=== PATIENT | female | born 1995 | race Caucasian/White ===

== ENCOUNTER 2019-07-27 16:50 | IRF | payer BC, SELFPAY ==
--- NOTE | ~2019-07-27 | MR_ITS ---
EXAMINATION: MR knee RT wo con DATE: 08/01/2019 16:18 INDICATION: Right knee pain. TECHNIQUE: Magnetic resonance imaging (MRI) of the right knee was performed without intravenous contr ast. Sequences included axial STIR FSE, coronal STIR FSE and PD-weighted FSE, sagittal PD-weighted FS E, and sagittal STIR FSE. COMPARISON: None. FINDINGS: Medial compartment: Medial meniscus is normal. Medial compartment cartilage is normal. Lateral compartment: Lateral meniscus is normal. Lateral compartment cartilage is normal. Patellofemoral compartment: There is deep partial-thickness cartilage loss of inferior patella involving the median ridge and sha llow partial-thickness cartilage loss of the adjacent medial and lateral facets with mild subchondral edema-like marrow signal intensity. Trochlear cartilage is normal. Ligaments and tendons: The anterior and posterior cruciate ligaments are normal. Medial collateral ligament and the lateral collateral ligament complex are normal. Fluid: There is a small knee joint effusion. There is subcutaneous edema about the knee. Osseous/other: There is an intramedullary wade in distal femur with distal interlocking screw. There is a hematoma mcintosh perficial to the head of the screw and deep to vastus lateralis muscle measuring 3.1 x 1.2 x 3.0 cm. IMPRESSION: 1. Focal moderate chondrosis of inferior patella. 2. Small knee joint effusion. 3. Hematoma superficial to the head of the distal femoral screw and deep to vastus lateralis muscle. Reviewed, dictated and finalized at location A. [employer] IMPRESSION: 1. Focal moderate chondrosis of inferior patella. 2. Small knee joint effusion. 3. Hematoma superficial to the head of the distal femoral screw and deep to vas tus lateralis muscle.
[2019-07-27 17:00] VITALS: BP 132/75; PULSE 94; RESP 18; TEMP 37; O2SAT 100; BMI 37.3
--- NOTE | 2019-07-27 17:28 | ADMGEN ---
This patient, Brynn Zhang, was admitted to [facility] Room 224-01. Patient/family oriented to hospital policies and general routines including ID bracelet, bed and alarms, visiting hours, pain management, procedures, bathroom and other care routines, personal items, smoking policy, room service/diet, and visiting hours. Valuables list has been completed. Information on how to activate the Rapid Response Team has been discussed. Patient/Family are encouraged to report perceived risks to care and to ask questions if they do not understand what they are told or what they should do.
[2019-07-27 18:29] VITALS: BMI 38.2
[2019-07-27 22:00] VITALS: BP 132/76; PULSE 96; RESP 18; TEMP 36.7; O2SAT 100
[2019-07-28 04:50] LABS: Basophils Percent Auto 0.3 % (0.2-1.2); Eosinophils Absolute Auto 0.1 K/mm3 (0-0.3); Hematocrit 24.7 % (37.0-47.0); Hemoglobin 7.8 g/dL (12.0-15.0); Immature Granulocyte Absolute 0.13 K/mm3 (0.00-0.031); Immature Granulocyte Percent A 1.5 % (0-0.5); Lymphocytes Absolute Auto 2.56 K/mm3 (0.9-3.2); Lymphocytes Percent Auto 28.9 % (18.3-44.2); Mean Corpuscular HGB Conc 31.6 g/dl (32-36); Mean Corpuscular Hemoglobin 28.2 pg (26-34); Mean Corpuscular Volume 89.2 fl (80-100); Mean Platelet Volume 9.4 fl (7.4-10.4); Monocytes Absolute Auto 0.7 K/mm3 (0.1-0.6); Monocytes Percent Auto 7.3 % (2.6-8.5); Neutrophils Absolute Auto 5.4 K/mm3 (1.3-6.7); Nucleated Red Blood Cells Perc 0.2 % (0.0-0.2); Platelet Count Result 329 k/mm3 (150-375); Red Blood Count 2.77 M/mm3 (4.2-5.4); Red Cell Distribution Width 13.5 % (11.5-14.5); White Blood Count 8.9 K/mm3 (4.5-10.0)
[2019-07-28 05:03] LABS: Blood Urea Nitrogen 20 mg/dL (7-17); Calcium 8.6 mg/dL (8.4-10.2); Carbon Dioxide 27 mmol/L (22-30); Chloride 101 mmol/L (98-107); Estimated CRCL calculation 108 ml/min; Estimated Glomerular Filt Rate > 60; Glucose 102 mg/dL (65-105); Potassium 3.4 mmol/L (3.4-5.0); Sodium 139 mmol/L (137-145)
[2019-07-28 06:00] VITALS: BP 126/78; PULSE 84; RESP 18; TEMP 36.7; O2SAT 100
[2019-07-28] MEDS: PANTOPRAZOLE 40 MG TABLET PO (10:30)
[2019-07-28] MEDS: ASPIRIN 325 MG TABLET PO (10:32)
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
[2019-07-28 13:21] VITALS: BMI 38.2
[2019-07-28 14:00] VITALS: BP 134/75; PULSE 98; RESP 17; TEMP 36.3; O2SAT 100
--- NOTE | 2019-07-28 16:35 | RPD ---
INDIVIDUALIZED PLAN OF CARE FOR Brynn Zhang Brief Synthesis of Pre-Admission Screen, Post-Admission Evaluation and Therapy Evaluations: The patient presents to rehab with right femoral shaft fracture. Comorbidities include acute postoperative pain, acute blood loss anemia, weakness. The patient requires physician services for medical oversight, management of postop complications in setting of present comorbidities, and pain management. The patient requires nursing services for DVT prophylactics, infection protection, medication management and education, pressure relief, and wound care. Deficits include:ADLs, Balance, Endurance, Mobility, Pain Management, ROM, Safety, Strength, Transfers Impregnating Tank Operator/Case Management for: Discharge Planning and Patient/Family Counseling Physical Therapy: 5 days per week for 90 minutes. Treatments may include: Therapeutic Exercise, Gait Training, Neuromuscular Re-education, Transfer Training, Community Reintegration, Bed Mobility, Patient/Family Education, Wheelchair Mobility Group Therapy/Concurrent Therapy Rationales: -Improve attention span during functional activities in a distracted environment. -Enhance problem solving and/or adequate judgment skills during functional activities in a distracted environment. -Promote increased safety awareness in a distracted environment to reduce fall risk with functional tasks, transfers, and ambulation to allow a more safe, self-sufficient return to the home environment. -Improve dynamic balance skills to promote safety and independence with functional activities in a distracted environment for maximum gain. Occupational Therapy: 5 days per week for 90 minutes. Treatments may include: Therapeutic Exercise, Therapeutic Activity, Cognitive Training, Self-Care Transfer Training, Community Reintegration, Home Management, Patient/Family Education, Wheelchair Mobility Training, Energy Conservation Training Group Therapy/Concurrent Therapy Rationales: -Allow therapist to observe and teach generalization and carry-over of skills learned in individual therapy. -Enhance problem solving and sequencing skills during therapeutic activities in a distracted environment. -Promote increased safety awareness in a realistic setting to reduce fall risk with functional tasks due to visual and verbal distractions. -Increase functional level with ADLs, ADL transfers and use of adaptive equipment through therapeutic activities with others while promoting safety to allow a more safe, self-sufficient return home. Medical Prognosis: Good Anticipated Length of Stay: 12 days Rehab Goals: Oral Hygiene Goal: 06-Independent Toileting Hygiene Goal: 06-Independent Shower/Bathe Self Goal: 06-Independent Upper Body Dressing Goal: 06-Independent Lower Body Dressing Goal: 06-Independent Putting On/Taking Off Footwear Goal: 06-Independent Rolling Left and Right Goal: 06-Independent Sit to Lying Goal: 06-Independent Lying to Sitting on Side of Bed Goal: 06-Independent Sit to Stand Goal: 06-Independent Chair/Hcl-nt-Xexec Transfer Goal: 06-Independent Toilet Transfer Goal: 06-Independent Car Transfer Goal: 06-Independent Walk 10' Goal: 06-Independent Walk 50' with Two Turns Goal: 06-Independent Walk 150' Goal: 06-Independent Walk 10' on Uneven Surface Goal: 06-Independent 1 Step (Curb) Goal: 05-Setup or Clean Up Assistance 4 Steps Goal: 04-Supervision or Touching Assistance 12 Steps Goal Score: 04-Supervision or Touching Assistance Picking Up Object Goal: 06-Independent Wheel 50' with Two Turns Score: 06-Independent Wheel 150' Goal: 06-Independent Anticipated discharge destination: Home
[2019-07-28] MEDS: POLYSACCHARIDE IRON COMPLEX 150 MG CAPSULE PO (17:08)
[2019-07-28 22:00] VITALS: BP 125/66; PULSE 79; RESP 16; TEMP 36; O2SAT 100
[2019-07-29 06:00] VITALS: BP 128/54; PULSE 67; RESP 16; TEMP 36.6; O2SAT 98
[2019-07-29] MEDS: ASPIRIN 325 MG TABLET PO (09:33)
[2019-07-29] MEDS: PANTOPRAZOLE 40 MG TABLET PO (09:33)
[2019-07-29] MEDS: POLYSACCHARIDE IRON COMPLEX 150 MG CAPSULE PO ×2 (09:33→17:53)
[2019-07-29 14:00] VITALS: BP 122/60; PULSE 76; RESP 20; TEMP 36.2; O2SAT 100
[2019-07-29 22:00] VITALS: BP 132/56; PULSE 75; RESP 18; TEMP 36.4; O2SAT 100
[2019-07-30 06:00] VITALS: BP 136/52; PULSE 74; RESP 20; TEMP 36.4; O2SAT 97
[2019-07-30] MEDS: POLYSACCHARIDE IRON COMPLEX 150 MG CAPSULE PO ×2 (09:32→17:19)
[2019-07-30] MEDS: PANTOPRAZOLE 40 MG TABLET PO (09:32)
[2019-07-30] MEDS: ASPIRIN 325 MG TABLET PO (09:32)
[2019-07-30 14:00] VITALS: BP 111/49; PULSE 70; RESP 18; TEMP 36.2; O2SAT 99
[2019-07-30 20:00] VITALS: PULSE 92; RESP 18; O2SAT 100
[2019-07-30 22:00] VITALS: BP 119/78; PULSE 92; RESP 18; TEMP 36.5; O2SAT 100
[2019-07-31 06:00] VITALS: BP 124/60; PULSE 84; RESP 17; TEMP 36.3; O2SAT 99
[2019-07-31] MEDS: POLYSACCHARIDE IRON COMPLEX 150 MG CAPSULE PO ×2 (09:51→18:19)
[2019-07-31] MEDS: PANTOPRAZOLE 40 MG TABLET PO (09:51)
[2019-07-31] MEDS: ASPIRIN 325 MG TABLET PO (09:51)
[2019-07-31 14:00] VITALS: BP 142/65; PULSE 80; RESP 17; TEMP 37; O2SAT 100
[2019-07-31 22:00] VITALS: BP 109/57; PULSE 63; RESP 16; TEMP 37; O2SAT 94
[2019-08-01 05:07] VITALS: BP 107/43; PULSE 60; RESP 20; TEMP 36.8; O2SAT 100
[2019-08-01] MEDS: PANTOPRAZOLE 40 MG TABLET PO (09:06)
[2019-08-01] MEDS: ASPIRIN 325 MG TABLET PO (09:07)
[2019-08-01] MEDS: POLYSACCHARIDE IRON COMPLEX 150 MG CAPSULE PO ×2 (10:17→17:30)
[2019-08-01 14:00] VITALS: BP 125/57; PULSE 84; RESP 16; TEMP 36.5; O2SAT 97
[2019-08-01 22:00] VITALS: BP 141/77; PULSE 73; RESP 16; TEMP 36.4; O2SAT 100
[2019-08-02 06:00] VITALS: BP 108/53; PULSE 66; RESP 16; TEMP 36.4; O2SAT 100
[2019-08-02] MEDS: PANTOPRAZOLE 40 MG TABLET PO (09:51)
[2019-08-02] MEDS: POLYSACCHARIDE IRON COMPLEX 150 MG CAPSULE PO ×2 (09:51→17:13)
[2019-08-02] MEDS: ASPIRIN 325 MG TABLET PO (09:51)
--- NOTE | 2019-08-02 11:52 | P.PNNERE_ITS ---
Subjective Date/time seen: 08/02/19 11:52 Review of Systems Review of Systems: All systems reviewed & are unremarkable except as noted in HPI and below Functional Status Ambulation Ability Ability to Ambulate 10 Feet: Independent Ability to Ambulate 50 Feet With 2 Turns: Independent Ability to Ambulate 150 Feet: Independent Ambulation Assistive Devices: Walker, Wheeled Transfers Ability Ability to Transfer In/Out of Chair: Independent Exam Const: General: no acute distress, well developed, alert, awake, Physically active and well groomed Nutritional Appearance: well nourished Limitations: no limitations Eyes: General: appearance normal, both eyes and all related structures Visual Pittman: normal visual pittman by confrontation Pupils: Equal, round and reactive pupils present EOM: EOMs intact bilaterally Direct Ophthalmoscopy: normal light reflex Resp: Auscultation: clear to auscultation bilaterally GI: Auscultation: normoactive bowel sounds Skin: General skin exam: no rashes or lesions noted Neuro: General: patient oriented x3 and moves all extremities Cranial nerves: Yes CN's II-XII intact bilaterally Cognition (Neuro): normal cognition Speech: normal speech Motor exam (neuro): 5/5 motor strength present throughout Extrem: General: normal to inspection and other Right lower extremity: normal to inspection and knee Psych: Appearance: grossly normal Objective Data Vital Signs Vital Signs: Vital Signs - 24 hr 08/01/19 14:00 08/01/19 22:00 08/02/19 06:00 Temperature 36.5 C 36.4 C 36.4 C L Pulse Rate 84 73 66 Respiratory Rate 16 16 16 Blood Pressure 125/57 L 141/77 H 108/53 L Pulse Oximetry 97 100 100 Intake/Output Intake/Output: Intake & Output 07/30/19 07/31/19 08/01/19 08/02/19 23:59 23:59 23:59 23:59 Intake Total 600 720 600 240 Balance 600 720 600 240 Meds/Results Medications: Active Medications Generic Name Dose Route Start Last Admin Trade Name Freq PRN Reason Stop Dose Admin Hydrocodone Bitart/Acetaminophen 1 tab 07/27/19 18:28 07/30/19 22:32 [place] 5-325 Mg PO 1 tab Q4H PRN Administration Pain Aspirin 325 mg 07/28/19 09:00 08/02/19 09:51 Aspirin PO 08/10/19 09:01 325 mg DAILY AZIZA Administration Pantoprazole Sodium 40 mg 07/28/19 09:00 08/02/19 09:51 Protonix PO 08/10/19 09:01 40 mg DAILY AZIZA Administration Polysaccharide Iron Complex 150 mg 07/28/19 17:00 08/02/19 09:51 Niferex-150 PO 150 mg BIDWM AZIZA Administration Senna 187 mg 07/27/19 17:00 08/02/19 07:55 Senokot Tablet PO Not Given BID [facility] Radiology Results: ITS Impressions Knee MRI 08/02/19 09:30 IMPRESSION: 1. Focal moderate chondrosis of inferior patella. 2. Small knee joint effusion. 3. Hematoma superficial to the head of the distal femoral screw and deep to vastus lateralis muscle. Progress Note: A&P Assessment and Plan (1) Arthralgia: Code(s): M25.50 - Pain in unspecified joint Status: Acute Additional Plan mri noted and discussed
[2019-08-02 14:00] VITALS: BP 116/57; PULSE 81; RESP 20; TEMP 36.1; O2SAT 97
[2019-08-02 22:00] VITALS: BP 126/75; PULSE 83; RESP 17; TEMP 36.3; O2SAT 100
[2019-08-03 06:00] VITALS: BP 124/65; PULSE 78; RESP 18; TEMP 36.2; O2SAT 100
[2019-08-03] MEDS: POLYSACCHARIDE IRON COMPLEX 150 MG CAPSULE PO ×2 (09:18→18:00)
[2019-08-03] MEDS: ASPIRIN 325 MG TABLET PO (09:18)
[2019-08-03] MEDS: PANTOPRAZOLE 40 MG TABLET PO (09:18)
[2019-08-03 14:00] VITALS: BP 132/74; PULSE 82; RESP 18; TEMP 36.3; O2SAT 100
--- NOTE | 2019-08-03 14:31 | WPDNEURORHBP ---
Subjective Date/time seen: 08/03/19 14:31 Interval history: this 24-year-old young lady is here after sustaining a fracture of right femoral shaft followed by surgery as mentioned in my initial history and physical examination she is doing remarkably well in the rehab She is in the independent living and most likely will be discharged tomorrow with a follow-up appointment with the surgeon and the primary care physician the patient denies any fever chills sore throat chest pain shortness of breath headache abdominal pain diarrhea or vomiting and is in good shape Review of Systems Review of Systems: All systems reviewed & are unremarkable except as noted in HPI and below Functional Status Ambulation Ability Ability to Ambulate 10 Feet: Independent Ability to Ambulate 50 Feet With 2 Turns: Independent Ability to Ambulate 150 Feet: Independent Ambulation Assistive Devices: Walker, Wheeled Transfers Ability Ability to Transfer In/Out of Chair: Independent Exam Const: General: comfortable and no acute distress HENMT: General nose exam: Normal nares present Mouth: Yes moist mucous membranes Eyes: General: appearance normal, both eyes and all related structures Neck: Neck: supple and no JVD Resp: Effort & Inspection: normal respiratory effort Auscultation: clear to auscultation bilaterally Cardio: Rate: regular rate Rhythm: regular rhythm GI: GI Palp: Yes Soft to palpation Auscultation: normal bowel sounds Skin: General skin exam: normal color and no rashes or lesions noted Neuro: Other: patient's mental status is normal cranial examination normal strength is symmetrical well intact apart from the fact that she does have a right femur fracture and weight-bearing as tolerated however no neurologic more weakness noted Extrem: Other: the incision at the back of the hip area and also around the knee area is clean and healthy Psych: Mental Status: mental status grossly normal Objective Data Vital Signs Vital Signs: Vital Signs - 24 hr 08/02/19 22:00 08/03/19 06:00 Temperature 36.3 C L 36.2 C L Pulse Rate 83 78 Respiratory Rate 17 18 Blood Pressure 126/75 124/65 Pulse Oximetry 100 100 Intake/Output Intake/Output: Intake & Output 07/31/19 08/01/19 08/02/19 08/03/19 23:59 23:59 23:59 23:59 Intake Total 720 600 720 480 Balance 720 600 720 480 Meds/Results Medications: Active Medications Generic Name Dose Route Start Last Admin Trade Name Freq PRN Reason Stop Dose Admin Hydrocodone Bitart/Acetaminophen 1 tab 07/27/19 18:28 08/02/19 20:00 [place] 5-325 Mg PO 1 tab Q4H PRN Administration Pain Aspirin 325 mg 07/28/19 09:00 08/03/19 09:18 Aspirin PO 08/10/19 09:01 325 mg DAILY AZIZA Administration Pantoprazole Sodium 40 mg 07/28/19 09:00 08/03/19 09:18 Protonix PO 08/10/19 09:01 40 mg DAILY AZIZA Administration Polysaccharide Iron Complex 150 mg 07/28/19 17:00 08/03/19 09:18 Niferex-150 PO 150 mg BIDWM AZIZA Administration Senna 187 mg 07/27/19 17:00 08/03/19 09:18 Senokot Tablet PO Not Given BID AZIZA Radiology Results: ITS Impressions Knee MRI 08/02/19 09:30 IMPRESSION: 1. Focal moderate chondrosis of inferior patella. 2. Small knee joint effusion. 3. Hematoma superficial to the head of the distal femoral screw and deep to vastus lateralis muscle. Progress Note: A&P Assessment and Plan (1) Arthralgia: Code(s): M25.50 - Pain in unspecified joint Status: Acute (2) Right femoral shaft fracture: Code(s): S72.301A - Unspecified fracture of shaft of right femur, initial encounter for closed fracture Status: Acute Additional Plan discussed the plan for discharge tomorrow medication will be reconciled tomorrow the patient will get outpatient PT the right knee has a small hematoma which is probably of no clinical significance but needs to be followed by the orthopedic physician who Sineff from the surgery in
--- NOTE | 2019-08-03 15:07 | PCCCNOTE ---
On 08/03/19, the student, [Tho Leblanc ], provided care and completed [facility] documentation on this patient. I have reviewed the student's documentation and agree with the findings.
[2019-08-03 22:00] VITALS: BP 135/85; PULSE 80; RESP 16; TEMP 36.1; O2SAT 98
[2019-08-04 05:14] LABS: Basophils Percent Auto 0.5 % (0.2-1.2); Eosinophils Absolute Auto 0.1 K/mm3 (0-0.3); Eosinophils Percent Auto 1.7 % (0-4.4); Hematocrit 28.2 % (37.0-47.0); Hemoglobin 8.6 g/dL (12.0-15.0); Immature Granulocyte Absolute 0.02 K/mm3 (0.00-0.031); Immature Granulocyte Percent A 0.3 % (0-0.5); Mean Corpuscular HGB Conc 30.5 g/dl (32-36); Mean Corpuscular Hemoglobin 27.5 pg (26-34); Mean Corpuscular Volume 90.1 fl (80-100); Mean Platelet Volume 9.7 fl (7.4-10.4); Monocytes Absolute Auto 0.4 K/mm3 (0.1-0.6); Monocytes Percent Auto 6.6 % (2.6-8.5); Neutrophils Absolute Auto 3.3 K/mm3 (1.3-6.7); Neutrophils Percent Auto 52.9 % (45.5-73.1); Platelet Count Result 411 k/mm3 (150-375); Red Blood Count 3.13 M/mm3 (4.2-5.4); Red Cell Distribution Width 14.4 % (11.5-14.5); White Blood Count 6.3 K/mm3 (4.5-10.0)
[2019-08-04 05:29] LABS: Blood Urea Nitrogen 18 mg/dL (7-17); Calcium 8.8 mg/dL (8.4-10.2); Carbon Dioxide 28 mmol/L (22-30); Chloride 104 mmol/L (98-107); Estimated CRCL calculation 108 ml/min; Estimated Glomerular Filt Rate > 60; Glucose 96 mg/dL (65-105); Potassium 3.7 mmol/L (3.4-5.0); Sodium 141 mmol/L (137-145)
[2019-08-04 06:00] VITALS: BP 116/62; PULSE 66; RESP 17; TEMP 36.2; O2SAT 100
[2019-08-04] MEDS: PANTOPRAZOLE 40 MG TABLET PO (09:06)
[2019-08-04] MEDS: POLYSACCHARIDE IRON COMPLEX 150 MG CAPSULE PO (09:06)
[2019-08-04] MEDS: ASPIRIN 325 MG TABLET PO (09:06)
--- NOTE | 2019-08-04 11:21 | PCDIET ---
Nutrition Follow-Up Complete: Nutrition Diagnosis: Predicted suboptimal oral intake related to decreased appetite as evidenced by patient statements, intake of 65% x 1. Nutrition Goal: Patient to consume 75% of meals or greater Goal met. Patient consuming 75-100% of most meals on regular diet which is appropriate. Last recorded weight is 101 kg. Recommend obtaining new weight. Bowel Motility: Last documented bowel movement on 07/31/19. Labs Reviewed: BUN (18), Hgb (8.6), Hct (28.2) Meds Noted: Protonix, Senna, Nifirex-150 Additional Notes: Right leg incision with sutures, open to air. No other skin issues reported. Plan for discharge today. If patient would remain in house, will continue to follow with same goals. No new recommendations. Nutrition Monitoring and Evaluation: Follow up in 7 days.
--- NOTE | 2019-08-04 12:25 | WPDNEURORHBP ---
Subjective Date/time seen: 08/04/19 12:25 Interval history: this 24-year-old is here on the acute rehab ready to be discharged she did remarkably well after having had surgery for the right distal femur fracture she does not have any specific new complaints and will be followed by the primary care physician and also the orthopedic physician she does have appointments coming up with the primary care physician next week The patient denies any fever chills sore throat chest pain shortness of breath lateralizing paresthesias focal weakness headache nausea vomiting or abdominal pain Review of Systems Review of Systems: All systems reviewed & are unremarkable except as noted in HPI and below Functional Status Ambulation Ability Ability to Ambulate 10 Feet: Independent Ability to Ambulate 50 Feet With 2 Turns: Independent Ability to Ambulate 150 Feet: Independent Ambulation Assistive Devices: Walker, Wheeled Transfers Ability Ability to Transfer In/Out of Chair: Independent Exam Const: General: comfortable and no acute distress HENMT: General nose exam: Normal nares present Mouth: Yes moist mucous membranes Eyes: General: appearance normal, both eyes and all related structures Neck: Neck: supple and no JVD Resp: Effort & Inspection: normal respiratory effort Auscultation: clear to auscultation bilaterally Cardio: Rate: regular rate Rhythm: regular rhythm GI: GI Palp: Yes Soft to palpation Auscultation: normal bowel sounds Skin: General skin exam: normal color and no rashes or lesions noted Neuro: Other: patient's neurological examination is perfectly normal including the mental status examination cranial examination more examination sensory examination deep tendon reflexes of course her gait limitations are related to the femur fracture and weight-bearing as tolerated Extrem: Other: the incision for the surgery for the right femur fracture are clean and healthy the no unusual swelling of the legs is noted and no sensory deficit Psych: Mental Status: mental status grossly normal Objective Data Vital Signs Vital Signs: Vital Signs - 24 hr 08/03/19 14:00 08/03/19 22:00 08/04/19 06:00 Temperature 36.3 C L 36.1 C L 36.2 C L Pulse Rate 82 80 66 Respiratory Rate 18 16 17 Blood Pressure 132/74 135/85 116/62 Pulse Oximetry 100 98 100 Intake/Output Intake/Output: Intake & Output 08/01/19 08/02/19 08/03/19 08/04/19 23:59 23:59 23:59 23:59 Intake Total 600 720 720 120 Balance 600 720 720 120 Meds/Results Medications: Active Medications Generic Name Dose Route Start Last Admin Trade Name Freq PRN Reason Stop Dose Admin Hydrocodone Bitart/Acetaminophen 1 tab 07/27/19 18:28 08/03/19 19:57 [place] 5-325 Mg PO 1 tab Q4H PRN Administration Pain Aspirin 325 mg 07/28/19 09:00 08/04/19 09:06 Aspirin PO 08/10/19 09:01 325 mg DAILY AZIZA Administration Pantoprazole Sodium 40 mg 07/28/19 09:00 08/04/19 09:06 Protonix PO 08/10/19 09:01 40 mg DAILY AZIZA Administration Polysaccharide Iron Complex 150 mg 07/28/19 17:00 08/04/19 09:06 Niferex-150 PO 150 mg BIDWM AZIZA Administration Senna 187 mg 07/27/19 17:00 08/04/19 09:06 Senokot Tablet PO 187 mg BID AZIZA Administration Radiology Results: ITS Impressions Knee MRI 08/02/19 09:30 IMPRESSION: 1. Focal moderate chondrosis of inferior patella. 2. Small knee joint effusion. 3. Hematoma superficial to the head of the distal femoral screw and deep to vastus lateralis muscle. Labs Labs: Laboratory Results - last 24 hr 08/04/19 08/04/19 04:39 04:39 WBC 6.3 RBC 3.13 L Hgb 8.6 L Hct 28.2 L MCV 90.1 MCH 27.5 MCHC 30.5 L RDW 14.4 Plt Count 411 H MPV 9.7 Immature Gran % (Auto) 0.3 Neut % (Auto) 52.9 Lymph % (Auto) 38.0 [place] % (Auto) 6.6 Eos % (Auto) 1.7 Baso % (Auto) 0.5 Lymph # (Auto) 2.40 [place] # (Auto) 0.4 Eos # (Auto) 0.1 Baso # (Auto) 0.0 Ab
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
== END 2019-08-04 14:13 | disposition home or self-care (01) | DRG 561 ==
PROVIDERS: Admitting Provider Psychiatry & Neurology Neurology; Referring Provider Internal Medicine; Visit Provider Psychiatry & Neurology Neurology
DX: S72.351D Displaced comminuted fracture of shaft of right femur, subsequent encounter for closed fracture with routine healing (principal); V49.9XXD Car occupant (driver) (passenger) injured in unspecified traffic accident, subsequent encounter
CPT/HCPCS: 36415; 73721; 80048; 85025; 87081; 97110; 97116; 97150; 97161; 97165; 97530; 97535; 97542; A9270

== ENCOUNTER 2020-07-26 15:05 | Outpatient (CLI) | payer BC, SELFPAY ==
[2020-07-26 19:06] LABS: Cholesterol 166 mg/dL (0-200); HDL Direct 41 mg/dL; Triglycerides 223 mg/dL (<150)
[2020-07-26 19:07] LABS: Hemoglobin A1C 5.6 % (<5.7)
[2020-07-26 19:17] LABS: LDL Cholesterol Direct 96 mg/dL
[2020-07-26 19:21] LABS: Iron 107 ug/dL (37-170)
[2020-07-26 19:30] LABS: Percent Iron Saturation 29 % (20-50)
[2020-07-26 19:38] LABS: Vitamin D 25 Hydroxy 20.5 ng/mL
[2020-07-26 19:41] LABS: Free T4 Free Thyroxine 1.15 ng/mL (0.78-2.19)
[2020-07-26 20:14] LABS: Folic Acid 17.5 ng/mL (2.76->20)
[2020-07-28 14:39] LABS: Sex Hormone Binding Globulin 12 nmol/L (17-124)
[2020-07-29 07:24] LABS: Progesterone 0.9 ng/mL (***); Prolactin 10.4 ng/mL (***)
[2020-07-29 10:17] LABS: T3 Reverse 23 ng/dL (8-25)
== END 2020-07-26 15:06 | disposition home or self-care (01) ==
LOC: ANHBWCLAB 15:11
PROVIDERS: PCP Family Medicine; Visit Provider Family Medicine
DX: F41.9 Anxiety disorder, unspecified (principal); D64.9 Anemia, unspecified; F43.10 Post-traumatic stress disorder, unspecified; M25.50 Pain in unspecified joint; M62.838 Other muscle spasm; N91.2 Amenorrhea, unspecified; Z79.899 Other long term (current) drug therapy; Z82.62 Family history of osteoporosis; N99.89 Other postprocedural complications and disorders of genitourinary system; Z98.51 Tubal ligation status
CPT/HCPCS: 36415; 80061; 82306; 82607; 82728; 82746; 83036; 83540; 83550; 84144; 84146; 84270; 84439; 84443; 84482